=== PATIENT | female | born 1975 | race Caucasian/White ===

== ENCOUNTER → 2018-12-22 | Outpatient (REF) | LOC: M LAB 14:44 | PROVIDERS: ATTEND Nurse Practitioner Adult Health | DX: Z02.89 Encounter for other administrative examinations (principal) ==

== ENCOUNTER → 2020-09-22 | Outpatient (CLI) | payer SELFPAY | LOC: M LABSMTC 08:10 | PROVIDERS: ATTEND Pediatrics | DX: Z20.828 Contact with and (suspected) exposure to other viral communicable diseases (principal) ==

== ENCOUNTER → 2020-12-05 | Outpatient (REF) | LOC: M LABSMTC 12:08 | PROVIDERS: ATTEND Pediatrics | DX: Z20.822 Contact with and (suspected) exposure to COVID-19 (principal) ==